=== PATIENT | male | born 1940 | race African-American/Black ===

== ENCOUNTER → 2017-02-10 | Outpatient (CLI) | payer MEDICARE ==
--- NOTE | 2017-02-11 12:58 | RAD ---
Abdominal ultrasound - limited to the kidneys Indication: Stage III chronic kidney disease. Comparison: None. Procedure: Transabdominal ultrasound images are obtained of the kidneys and bladder. Findings: Right kidney measures 9.3 cm in length. Left kidney measures 10.3 cm in length. Both kidneys are with evidence of obstruction or stone. Parenchymal echogenicity of both kidneys appears appropriate. Urinary bladder has unremarkable appearance. Urinary bladder demonstrates presence of a diverticulum involving the right aspect. Estimated prevoid bladder volume is 140 mL. Small postvoid residual volume of 33 mL is seen.The prostate appears enlarged measuring at least 4.7 cm in maximum dimension. Impression: 1. Unremarkable appearance of the kidneys. 2. Enlargement of the prostate. 3. Small postvoid residual bladder volume. Bladder diverticulum.
== END | disposition home or self-care (01) ==
LOC: US 08:43
PROVIDERS: ATTEND Internal Medicine Nephrology
DX: N18.3 Chronic kidney disease, stage 3 (moderate) (principal)
CPT/HCPCS: 76770

== ENCOUNTER → 2017-04-07 | Outpatient (CLI) | payer MEDICARE ==
--- NOTE | 2017-04-08 11:11 | CARD ---
APPROVED REPORT EXAM: Two-dimensional and M-mode echocardiogram with Doppler and color Doppler. Other Information Quality : Average Rhythm : NSR INDICATION Aortic Valve Disease Surgery/Intervention Status/Post Aortic Valve Replacement: Bioprosthetic 2D DIMENSIONS Left Atrium(2D)3.9 (1.6-4.0cm)IVSd0.8 (0.7-1.1cm) Aortic Root(2D)3.3 (2.0-3.7cm)LVDd4.5 (3.9-5.9cm) LVOT Diameter2.0 (1.8-2.4cm)PWd0.8 (0.7-1.1cm) LVDs2.5 (2.5-4.0cm)FS (%) 34.4 % SV71.9 mlLVEF(%)65.8 (>50%) Aortic Valve AoV Peak Kingsley.190.1cm/sAoV VTI42.9cm AO Peak GR.14.5mmHgLVOT Peak Kingsley.125.3cm/s LVOT VTI 25.30cmAO Mean GR.9mmHg CHEPE (VMAX)2.96hg6ONI (VTI)1.92cm2 Mitral Valve MV E Gmxwkvoh60.1cm/sMV DECEL [id number] MV A Ayejkkez31.3cm/sMV ZAP01dt E/A Ratio0.8MV A Xdsqaueh992df MVA (PHT)3.14cm2 Tricuspid Valve TR P. Ucncmpyr680bu/sRAP TVIXMBDR3skHu TR Peak Gr.95gjKvBLRA52rbEw LEFT VENTRICLE The left ventricle is normal size. There is normal left ventricular wall thickness. Left ventricle sy stolic function is normal. The Ejection Fraction is 60-65%. There is normal LV segmental wall motion. The left ventricular diastolic function and filling is normal for age. RIGHT VENTRICLE The right ventricle is normal size. The right ventricular systolic function is normal. ATRIA The left atrium size is normal. The right atrium size is normal. The interatrial septum is intact wit h no evidence for an atrial septal defect or patent foramen ovale as noted on 2-D or Doppler imaging. AORTIC VALVE Doppler and Color Flow revealed no significant aortic regurgitation. Calculated aortic valve area is 1.9 cm2 with maximum pressure gradient of 15 mmHg and mean pressure gradient of 9 mmHg across the pro sthetic valve. Doppler and color-flow analysis revealed trace aortic stenosis. 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 The prosthetic aortic valve appears normal. MITRAL VALVE Mitral annular calcification is moderate. There is no mitral valve stenosis. Doppler and Color Flow r evealed mild mitral regurgitation. TRICUSPID VALVE The tricuspid valve is normal in structure and function. Doppler and Color Flow revealed mild tricusp id regurgitation. The PA pressure was estimated at 27 mmHg. There is no tricuspid valve stenosis. PULMONIC VALVE The pulmonic valve is not well visualized. Doppler and Color Flow revealed no pulmonic valvular regur gitation. There is no pulmonic valvular stenosis. GREAT VESSELS The aortic root is normal in size. The IVC is normal in size and collapses >50% with inspiration. PERICARDIAL EFFUSION There is no evidence of significant pericardial effusion. Critical Notification Critical Value: No <Conclusion> The left ventricle is normal size. Left ventricle systolic function is normal. The Ejection Fraction is 60-65%. 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 The prosthetic aortic valve appears normal. Calculated aortic valve area is 1.9 cm2 with maximum pressure gradient of 15 mmHg and mean pressure g radient of 9 mmHg across the prosthetic valve. Doppler and color-flow analysis revealed trace aortic stenosis. Doppler and Color Flow revealed mild mitral regurgitation. Doppler and Color Flow revealed mild tricuspid regurgitation. The PA pressure was estimated at 27 mmHg.
== END | disposition home or self-care (01) ==
LOC: ECHO 13:51
PROVIDERS: ATTEND Internal Medicine Cardiovascular Disease
DX: I08.3 Combined rheumatic disorders of mitral, aortic and tricuspid valves (principal); Z95.2 Presence of prosthetic heart valve
CPT/HCPCS: 93306

== ENCOUNTER → 2018-11-16 | Outpatient (CLI) | payer MEDICARE ==
--- NOTE | 2018-11-16 16:05 | CARD ---
MR#: [id number] Date of Study: 11/16/2018 Ordering Physician: AMANDA COOLEY, Referring Physician: AMANDA COOLEY Tech: Yael Donnelly RDCS APPROVED REPORT EXAM: Two-dimensional and M-mode echocardiogram with Doppler and color Doppler. Other Information Quality : Fair INDICATION Aortic Valve Disease Surgery/Intervention Status/Post Aortic Valve Replacement: Bioprosthetic Type: 23 mm Porcine Date: 02/2014 2D DIMENSIONS Left Atrium(2D)4.7 (1.6-4.0cm)IVSd0.8 (0.7-1.1cm) Aortic Root(2D)2.6 (2.0-3.7cm)LVDd4.3 (3.9-5.9cm) LVOT Diameter2.3 (1.8-2.4cm)PWd0.8 (0.7-1.1cm) LVDs2.4 (2.5-4.0cm)FS (%) 30.0 % SV62.9 mlLVEF(%)60.0 (>50%) Aortic Valve AoV Peak Kingsley.199.0cm/sAoV VTI35.1cm AO Peak GR.15.8mmHgLVOT Peak Kingsley.144.9cm/s LVOT VTI 27.53cmAO Mean GR.9mmHg CHEPE (VMAX)2.79mn4FFH (VTI)3.14cm2 Mitral Valve MV E Fnnwdqlo75.3cm/sMV DECEL XHWS492aw MV A Roiasvbk275.6cm/sE/A Ratio0.7 Tricuspid Valve TR P. Xztojcxw061qi/sRAP LEQJQCYK3tlSb TR Peak Gr.06ghBsKIKL20kbCl Pulmonary Vein S1 Dghtpvpw23.6cm/sD2 Fepvsfhz31.4cm/s LEFT VENTRICLE The left ventricle is normal size. There is normal left ventricular wall thickness. The left ventricu lar systolic function is normal. The Ejection Fraction is 55-60%. Septal motion consistent with post operative state. Transmitral Doppler flow pattern is Grade I-abnormal relaxation pattern. RIGHT VENTRICLE The right ventricle is normal size. The right ventricular systolic function is normal. ATRIA The left atrium is mildly dilated. The right atrium size is normal. The interatrial septum is intact with no evidence for an atrial septal defect or patent foramen ovale as noted on 2-D or Doppler imagi ng. AORTIC VALVE Doppler and Color Flow revealed no significant aortic regurgitation. Calculated aortic valve area is 3.1 cm2 with maximum pressure gradient of 16 mmHg and mean pressure gradient of 9 mmHg. There is a po rcine aortic valve prosthesis. The prosthetic aortic valve appears well seated. MITRAL VALVE The mitral valve is calcified but opens well. Mitral annular calcification is mild. There is no evide nce of mitral valve prolapse. There is no mitral valve stenosis. Doppler and Color-flow revealed trac e to mild mitral regurgitation. TRICUSPID VALVE The tricuspid valve is normal in structure and function. Doppler and Color Flow revealed trace tricus pid regurgitation. The PA pressure was estimated at 22 mmHg. There is no tricuspid valve stenosis. PULMONIC VALVE The pulmonic valve is not well visualized. Doppler and Color Flow revealed no pulmonic valvular regur gitation. There is no pulmonic valvular stenosis. GREAT VESSELS The aortic root is normal in size. The ascending aorta is not well seen. The IVC was not visualized. PERICARDIAL EFFUSION There is no evidence of significant pericardial effusion. Critical Notification Critical Value: No <Conclusion> The left ventricular systolic function is normal. The Ejection Fraction is 55-60%. Transmitral Doppler flow pattern is Grade I-abnormal relaxation pattern. The bioprosthetic aortic valve appears well seated and functioning well. Trace to mild mitral regurgitation. Trace tricuspid regurgitation. The PA pressure was estimated at 22 mmHg. There is no evidence of significant pericardial effusion. Signed by : Amanda Cooley, Electronically Approved : 11/16/2018 16:03:28
== END | disposition home or self-care (01) ==
LOC: ECHO 12:21
PROVIDERS: ATTEND Internal Medicine Cardiovascular Disease
DX: I25.10 Atherosclerotic heart disease of native coronary artery without angina pectoris (principal); R00.8 Other abnormalities of heart beat; Z95.3 Presence of xenogenic heart valve
CPT/HCPCS: 93306

== ENCOUNTER → 2018-12-02 | Outpatient (CLI) | payer MEDICARE ==
--- NOTE | 2018-12-03 08:13 | RAD ---
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 Spectral waveforms and color Doppler are grossly within normal limits and the bilateral ICA vessels. The bilateral vertebral velocities are antegrade. Normal ICA to CCA ratios noted. No high-grade steno sis is identified. Critical Notification Critical Value: No <Conclusion> No focal high-grade stenosis noted. Signed by : Michele Buchanan, Electronically Approved : 12/03/2018 08:13:33
== END | disposition home or self-care (01) ==
LOC: US 14:14
PROVIDERS: ATTEND Internal Medicine Cardiovascular Disease
DX: I65.23 Occlusion and stenosis of bilateral carotid arteries (principal)
CPT/HCPCS: 93880

== ENCOUNTER → 2021-02-07 | Outpatient (CLI) | payer MEDICARE ==
--- NOTE | 2021-02-07 11:39 | RAD ---
EXAM: Left shoulder, 3 views. HISTORY: Pain. COMPARISON: None. FINDINGS: 3 views of the left shoulder obtained. There is no acute fracture, dislocation or subluxati on. There is mild degenerative subchondral sclerosis and subchondral cyst formation and spurring invo lving the distal clavicle. There is a tiny ossicle or calcification along the distal rotator cuff. Th ere is a bone island within the proximal humerus. There is minimal glenoid spurring. There are incide ntal median sternotomy wires. IMPRESSION: 1. 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 2. No acute osseous finding. Electronically signed by: Cecy Talamantes MD (02/07/2021 11:37 AM) [id number]
== END ==
LOC: RAD 11:09
PROVIDERS: ATTEND Orthopaedic Surgery
DX: M19.012 Primary osteoarthritis, left shoulder (principal)
CPT/HCPCS: 73030